=== PATIENT | male | born 1995 | race African-American/Black ===

== ENCOUNTER 2016-12-24 11:59 | Emergency (ER) | payer OTHER ==
[~2016-12-24] VITALS: Ht 188 cm; Wt 79.4 kg
[2016-12-24 11:59] VITALS: BP 135/61
[2016-12-24] MEDS ORDERED: GI COCKTAIL 50ML BTL(HYOSCYAMINE/MAALOX/LIDOCAINE VISCOUS)(1:3:1) PO ONE (12:30)
[2016-12-24] MEDS ORDERED: PRIL20CA9 PO (12:37)
== END 2016-12-24 12:45 | disposition home or self-care (01) ==
LOC: M ED 12:42
DX: K21.9 Gastro-esophageal reflux disease without esophagitis (principal); R10.13 Epigastric pain

== ENCOUNTER → 2017-02-09 | Outpatient (REF) | payer OTHER ==
[~2017-02-09] MED LIST: PRIL20CA9 PO
== END ==
LOC: M SFHCLERA 16:21
PROVIDERS: ATTEND Nurse Practitioner Family
DX: R30.0 Dysuria (principal)
CPT/HCPCS: 87086; 87491; 87591; 96372; G0463; J0696; Q0144

== ENCOUNTER 2017-02-10 20:24 | Emergency (ER) | payer OTHER ==
[~2017-02-10] VITALS: Ht 190.5 cm; Wt 81.6 kg
[2017-02-10] MEDS ORDERED: cefTRIAXone SOD 1 GM VIAL (J0696) IM ONE (22:15)
[2017-02-10] MEDS ORDERED: AZITHROMYCIN 250 MG TAB PO ONE (22:15)
[2017-02-10 22:34] VITALS: BP 133/78
== END 2017-02-10 22:40 | disposition home or self-care (01) ==
LOC: M ED 22:08
DX: A56.8 Sexually transmitted chlamydial infection of other sites (principal); A56.01 Chlamydial cystitis and urethritis
CPT/HCPCS: 81001; 87086; 87491; 87591; 96372; 99282; J0696

== ENCOUNTER → 2017-02-27 | Day surgery (SDC) | payer OTHER ==
[~2017-02-27] VITALS: Ht 188 cm; Wt 79.4 kg
[~2017-02-27] MED LIST changes: +BACITRACIN OINT 30GM As Ordered ONE; +KETOROLAC 60 MG/2 ML VIAL (J1885) As Ordered ONE; +LIDOCAINE 2% INJ 100 MG/5 ML SDV (FOR ANES.) As Ordered ONE; +LR 1,000 ML IV ONE; +LR 1,000 ML IV SCH; +METOCLOPRAMIDE INJ 10MG/2ML VIAL (J2765) IV PRN; +MIDAZOLAM INJ 2 MG/2 ML VIAL (J2250) As Ordered ONE; +MORPHINE 10 MG/ML 1ML VIAL As Ordered ONE; +ONDANSETRON 4MG/2ML VIAL (J2405) As Ordered ONE; +ONDANSETRON 4MG/2ML VIAL (J2405) IV PRN; +PERCOCET 5MG/325MG TAB PO PRN; +PROPOFOL 200 MG/20 ML VIAL As Ordered ONE; +dexameTHASONE 4 MG/ML 1ML VIAL (J1100) As Ordered ONE; +fentaNYL 100 MCG/2 ML INJECTION (J3010) As Ordered ONE; +fentaNYL 100 MCG/2 ML INJECTION (J3010) IV PRN
[2017-02-27] MEDS: MORPHINE 2 MG/ML 1ML SYRINGE IV PRN ×3 (09:15→09:30)
--- NOTE | 2017-02-27 09:47 | RO ---
DATE OF PROCEDURE: 02/27/2017 PREPROCEDURE DIAGNOSIS: Phimosis. POSTPROCEDURE DIAGNOSIS: Phimosis. PROCEDURE: Circumcision. SURGEON: Philip Booth MD CELLOPHANE PRESS OPERATOR: None ANESTHESIA: General. 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 He is brought to the operating room today for the above-listed procedure. DESCRIPTION OF PROCEDURE: The patient was brought to the operating room, and general anesthesia was induced. Prophylactic antibiotics were infused. He was then placed in supine position and prepped and draped in the usual sterile fashion. At this point, a [address] through the glans penis. Circumcising incisions were then made circumferential around the foreskin just proximal to the level of the coronal sulcus, and then also, around the skin of the penis after retracting the foreskin just proximal to the coronal sulcus. These incisions were then connected using Bovie electrocautery, and all the foreskin between the two incisions was carefully removed using the Bovie electrocautery. The skin was then reapproximated to the glans using interrupted 3-0 chromic sutures circumferentially. This was done after checking hemostasis, and hemostasis did appear excellent. Once this was done, dressings were applied, starting first with bacitracin ointment and then a Mc dressing and then a Coban dressing on top of that. At this point, the retracting suture was removed, and pressure was applied to the glans until there was no bleeding. This marked the conclusion of the procedure. The patient was then awakened from anesthesia and transported to the recovery room in stable condition. ESTIMATED BLOOD LOSS: 10 mL. COMPLICATIONS: None. SPECIMENS: Foreskin. PLAN: The patient will be followup in the clinic in a few weeks for a postoperative visit. FRANKIE
[2017-02-27 11:05] VITALS: BP 133/64
== END | disposition home or self-care (01) ==
LOC: M SDC 05:53
PROVIDERS: ATTEND Urology
DX: N47.1 Phimosis (principal)
CPT/HCPCS: 54161; 88302; J0690; J1100; J1885; J2250; J2405; J3010

== ENCOUNTER 2017-08-07 09:56 | Inpatient (IN) | payer OTHER ==
[~2017-08-07] VITALS: Ht 188 cm; Wt 80.0 kg
[~2017-08-07 09:56] MED LIST changes: -BACITRACIN OINT 30GM As Ordered ONE; -KETOROLAC 60 MG/2 ML VIAL (J1885) As Ordered ONE; -LIDOCAINE 2% INJ 100 MG/5 ML SDV (FOR ANES.) As Ordered ONE; -LR 1,000 ML IV ONE; -LR 1,000 ML IV SCH; -METOCLOPRAMIDE INJ 10MG/2ML VIAL (J2765) IV PRN; -MIDAZOLAM INJ 2 MG/2 ML VIAL (J2250) As Ordered ONE; -MORPHINE 10 MG/ML 1ML VIAL As Ordered ONE; -ONDANSETRON 4MG/2ML VIAL (J2405) As Ordered ONE; -ONDANSETRON 4MG/2ML VIAL (J2405) IV PRN; -PERCOCET 5MG/325MG TAB PO PRN; -PROPOFOL 200 MG/20 ML VIAL As Ordered ONE; -dexameTHASONE 4 MG/ML 1ML VIAL (J1100) As Ordered ONE; -fentaNYL 100 MCG/2 ML INJECTION (J3010) As Ordered ONE; -fentaNYL 100 MCG/2 ML INJECTION (J3010) IV PRN
[2017-08-07 10:49] LABS: MEAN CORPUSCULAR HEMOGLOBIN 30.2 pg (27.0-33.0); MEAN CORPUSCULAR HGB CONC 33.3 g/dl (32.0-36.5); MEAN CORPUSCULAR VOLUME 90.9 fl (80.0-96.0); PLATELET COUNT, AUTOMATED 228 10^3/uL (150-450); RED CELL DISTRIBUTION WIDTH 11.9 % (11.5-14.5); WHITE BLOOD COUNT 4.9 10^3/uL (4.0-10.0)
[2017-08-07 11:23] LABS: METHADONE URINE NEGATIVE (NEGATIVE)
[2017-08-07 11:31] LABS: ALBUMIN 4.6 GM/DL (3.2-5.2); ALBUMIN/GLOBULIN RATIO 1.31 (1.00-1.93); ALKALINE PHOSPHATASE 82 U/L (45-117); ALT/SGPT 30 U/L (12-78); ANION GAP 8 MEQ/L (8-16); AST/SGOT 25 U/L (7-37); BILIRUBIN,DIRECT 0.3 MG/DL (0.0-0.2); BILIRUBIN,TOTAL 0.9 MG/DL (0.2-1.0); BLOOD UREA NITROGEN 10 MG/DL (7-18); CALCIUM LEVEL 9.5 MG/DL (8.5-10.1); CARBON DIOXIDE LEVEL 28 MEQ/L (21-32); CHLORIDE LEVEL 103 MEQ/L (98-107); CREATININE FOR GFR 0.98 MG/DL (0.70-1.30); GLOMERULAR FILTRATION RATE > 60.0 (>60); GLUCOSE, FASTING 95 MG/DL (70-105); POTASSIUM SERUM 3.7 MEQ/L (3.5-5.1); SODIUM LEVEL 139 MEQ/L (136-145); TOTAL PROTEIN 8.1 GM/DL (6.4-8.2)
[2017-08-07] MEDS ORDERED: ACETAMINOPHEN TAB 650MG DOSE (2X325MG) PO PRN (16:00)
[2017-08-07] MEDS ORDERED: MOM 30ML SUSPENSION UDC PO PRN (16:00)
[2017-08-07] MEDS ORDERED: MAALOX 30 ML SUSP *UDC PO PRN (16:00)
[2017-08-07] MEDS ORDERED: traZODone 50 MG TAB PO PRN (16:00)
[2017-08-07 18:16] VITALS: BP 144/76
[2017-08-08 06:42] VITALS: BP 130/60
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
--- NOTE | 2017-08-08 14:33 | MHHPEPDOC ---
[facility] History & Physical History and Physical DATE OF ADMISSION: Aug 07, 2017 at 14:57 LEGAL STATUS AT ADMISSION: 9.39 CHIEF COMPLAINT: Patient says he came to the ED because he needed help, he needed to learn some coping skills to deal with stress. He said he felt overwhelmed HISTORY OF PRESENT ILLNESS: Patient is a 21-year-old male, who presented with SI without plan. Pt states, "my kicked me out in May 2017." Pt reports not knowing the reason why his kicked him out. Pt reports having a hard time coping stating today that "I am tired of holding everything in and I just want to end it". Pt states that he feels his is trying to get more custody of his daughter stating that he thinks it is for "money reasons". Pt states that work is not a stressor. Pt states that he is only stressed out because of the arguing between himself and his . Pt reports living "here and there with friends mostly with a [employer] wendi in [place]". Pt reports that he does not have a support system. Pt is from [place] but does not have a support system there either. Pt has poor appetite going from 3 meals a day to just 1 meal a day since May 2017. Pt reports only sleeping "4 or 5 hours a night". Pt drinks alcohol occasionally about every other weekend. Pt does not smoke or do drugs. Pt is not on any medications. Pt reports that he does not want to end his life right now because "he feels like there is hope".Documentation completed by MARC Knowles. PSYCHIATRIC REVIEW OF SYSTEMS: Affective: "I'm feeling pretty good now". After he said he flt good, he said he felt frustrated. He presents guarded. decreased sleep and appetite. Anxiety: High. sleep problems, decreased appetite Trauma: Denies Psychosis: Denies Personality: Needs further assessment PAST PSYCHIATRIC HISTORY: Prior Psychiatric Disorder: . Outpatient Treatment: . Suicidal/Self injurious: [Denies]. Psychotropic Medication History: . ALLERGIES: Please see below. FAMILY PSYCHIATRIC HISTORY: Denies SOCIAL HISTORY: Early Relations/development: Was born and was raised in [place], he says his childhood and adolescence were good Sibling order: Has on older sibling. Paternal relationships: Keeps in touch with his parents, but he doesn't feel supported by them. Education: HS diploma. Occupational: Active duty soldier. Legal: Denies Marital: , has an 8 month old baby girl Economic: Repots financial problems, but he says they are not causing him a lot of stress. Supports: [employer] Abuse/trauma: Denies SUBSTANCE ABUSE HISTORY: Denies PAST MEDICAL/SURGICAL HISTORY: [None]. VITAL SIGNS: Please see below. MENTAL STATUS EXAMINATION: General appearance: Patient is a 21-year old male, who is alert, guarded, dressed in hospital clothes, cooperative. Speech: Sparse, not fluent, not spontaneous, normal in tone, rate and volume Thought processes: Intact Thought content: Trust issues about his . He said she was unfaithful and he has thought he could pardon her, but then, he gave it a second thought and he said "no, because I can't trust her". Abstract reasoning and computation: Not assessed at this time Description of associations: Good Description of abnormal or psychotic thoughts: Denies current SI/HI, A/V hallucinations, denies thought delusions Judgment: Limited Insight: Limited Orientation: Oriented x 3 Recent and remote memory: Intact Attention span and concentration: good Fund of knowledge: Adequate Mood: "I feel good now." Affect: Constricted. anxious affect DIAGNOSES: 1. R/O Adjustment Disorder with depressed mood 2. R/O MDD, severe, single episode without psychotic symptoms ASSESSMENT: Patient is very guarded, he remained with his arms crossed on his chest for most of the interview. He is going through a tough situation at this time, he recently discovered his was cheating on him and he told her recently that he wanted to end his life to get a reaction out of her and he said he got the reaction he was expecting, she cried and begged him not to kill himself. However, he saus he won't forgive her because he can't trust her. 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 PROBLEM LIST: 1. Depression 2. Anxiety. 3. Risk for suicide 4. Ineffective coping INITIAL TREATMENT PLAN: 1. Patient was admitted on a 9.39 2. Complete history was obtained. 3. With patients permission, family will be contacted and database will be expanded. 4. Patients medication regimen will be reviewed and changed accordingly. 5. Patient will be provided with protected environment. 6. Patient will be treated with individual, group, and milieu therapies. 7. Patient will receive supportive psych-education. 8. Discharge planning will commence immediately. 9. Outpatient follow-up treatment will be strongly recommended. 10. The initial treatment plan will focus initially on: * Depression. * Risk for suicide. ESTIMATED LENGTH OF STAY: 5-7 DAYS. TIME SPENT COUNSELING AND COORDINATING INITIAL CARE: 60 minutes. Vital Signs Vital Signs Date Time Temp Pulse Resp B/P (MAP) Pulse Ox O2 Delivery O2 Flow Rate FiO2 08/08/17 06:42 98.8 61 14 130/60 (83) Room Air 08/07/17 18:16 100 Medications No Active Prescriptions or Reported Meds Allergies Coded Allergies: No Known Allergies (Unverified , 02/27/17) AMAURY FREDERICK MD Aug 08, 2017 14:33
[2017-08-08 18:14] VITALS: BP 127/63
[2017-08-09 06:19] VITALS: BP_SYST 118; BP_SYST 121; BP_DIAS 66; BP_DIAS 70
[2017-08-09] MEDS ORDERED: TRAZO50TA PO (11:02)
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
--- NOTE | 2017-08-10 00:42 | ECGEPIP ---
Stationary ECG Study [facility] Test Date: 2017-08-08 Pat Name: TOYA ROGERS Department: Room: [place] [address] Gender: M Etl Consultant: HERNESTO : 1995 Requested By: Mami Fernandez Order Number: [id number] Reading MD: Mika Rea Measurements Intervals Raymond Rate: 61 P: 12 [place]: 185 QRS: 66 QRSD: 107 T: 41 QT: 380 QTc: 383 Interpretive Statements SINUS RHYTHM. ECTOPIC ATRIAL BEATS ALSO NOTED ST ELEVATION CONSISTENT WITH INJURY, PERICARDITIS, OR EARLY REPOLARIZATION NONSPECIFIC ST & T-WAVE ABNORMALITY No prior tracing in the system Electronically Signed On 08-10-2017 0:41:59 EST by Mika Rea
== END 2017-08-09 13:30 | disposition home or self-care (01) | DRG 881 ==
LOC: M ED 09:56 → M ED INP 14:57 → M PSY 18:08
PROVIDERS: ADMIT Psychiatry & Neurology Psychiatry; ATTEND Psychiatry & Neurology Psychiatry
DX: F43.21 Adjustment disorder with depressed mood (principal); M54.5 Low back pain

== ENCOUNTER → 2017-09-09 | Outpatient (REF) | payer OTHER ==
[~2017-09-09] MED LIST changes: +MOBI4TAB PO; +TRAZO50TA PO
== END ==
LOC: M SFHCLERA 14:46
PROVIDERS: ATTEND Nurse Practitioner Family
DX: Z72.51 High risk heterosexual behavior (principal)

== ENCOUNTER 2017-09-14 08:43 | Emergency (ER) | payer OTHER ==
[~2017-09-14] VITALS: Ht 190.5 cm; Wt 81.8 kg
[~2017-09-14 08:43] MED LIST changes: -MOBI4TAB PO
[2017-09-14 08:44] VITALS: BP 122/62
[2017-09-14] MEDS ORDERED: MOBI4TAB PO (09:41)
== END 2017-09-14 09:47 | disposition home or self-care (01) ==
LOC: M ED 08:43
DX: M76.61 Achilles tendinitis, right leg (principal)

== ENCOUNTER 2017-11-01 06:19 | Inpatient (IN) | payer OTHER ==
[2017-11-01] MEDS: LR 1,000 ML IV ×4 (06:39→20:41)
[2017-11-01] MEDS ORDERED: LIDOCAINE 1% MDV 20ML VIAL SQ (06:45)
[2017-11-01] MEDS ORDERED: MIDAZOLAM INJ 2 MG/2 ML VIAL (J2250) As Ordered (07:30)
[2017-11-01] MEDS ORDERED: fentaNYL 250 MCG/5 ML INJECTION (J3010) As Ordered (07:30)
[2017-11-01] MEDS: dexameTHASONE 4 MG/ML 1ML VIAL (J1100) IV ×2 (07:34→15:43)
[2017-11-01] MEDS ORDERED: ONDANSETRON 4MG/2ML VIAL (J2405) As Ordered ×2 (08:13→11:14)
[2017-11-01] MEDS ORDERED: ROCURONIUM BROMIDE 50 MG/5 ML VIAL As Ordered (08:13)
[2017-11-01] MEDS ORDERED: LIDOCAINE 2% INJ 100 MG/5 ML SDV (FOR ANES.) As Ordered (08:13)
[2017-11-01] MEDS ORDERED: PROPOFOL 200 MG/20 ML VIAL As Ordered (08:13)
[2017-11-01] MEDS ORDERED: GLYCOPYRROLATE INJ 0.2 MG/ML 2 ML VIAL As Ordered (08:16)
[2017-11-01] MEDS ORDERED: HYDROmorphone HCL 2 MG/ML 1ML VIAL (J1170) As Ordered (08:16)
[2017-11-01] MEDS ORDERED: NEOSTIGMINE 10 MG/10 ML VIAL (J2710) As Ordered (08:16)
[2017-11-01] MEDS ORDERED: PHENYLephrine HCL 500 MCG/5 ML (100MCG/ML) SYRINGE (J2370) As Ordered (08:20)
[2017-11-01] MEDS: CHLORHEXIDINE GLUCONATE 0.12 % 15ML UDC (PERIDEX ORAL RINSE) As Ordered ×3 (08:27→08:28)
[2017-11-01] MEDS: OXYMETAZOLINE NASAL SPRAY (AFRIN) As Ordered ×2 (08:27→08:28)
[2017-11-01] MEDS: BACITRACIN OINT 30GM As Ordered (08:27)
[2017-11-01] MEDS: LIDOCAINE 2% W/ EPINEPHRINE 1.7 ML DENTAL INJ As Ordered (08:29)
[2017-11-01] MEDS ORDERED: REMIFENTANIL 1MG 3ML VIAL As Ordered ×2 (08:37)
[2017-11-01] MEDS ORDERED: LABETALOL HCL 100 MG/20 ML VIAL As Ordered (08:39)
[2017-11-01] MEDS ORDERED: OXYMETAZOLINE NASAL SPRAY (AFRIN) As Ordered (08:44)
[2017-11-01] MEDS ORDERED: METOCLOPRAMIDE INJ 10MG/2ML VIAL (J2765) As Ordered (10:54)
[2017-11-01] MEDS ORDERED: MEPERIDINE 50 MG/ML 1ML VIAL (J2175) As Ordered (11:37)
[2017-11-01] MEDS ORDERED: KETOROLAC 60 MG/2 ML VIAL (J1885) As Ordered (11:52)
[2017-11-01] MEDS ORDERED: PERCOCET 5MG/325MG TAB PO (12:15)
[2017-11-01] MEDS ORDERED: fentaNYL 100 MCG/2 ML INJECTION (J3010) IV (12:15)
[2017-11-01] MEDS ORDERED: MEPERIDINE INJ 25 MG/ML VIAL (J2175) IV (12:15)
[2017-11-01] MEDS: MORPHINE 2 MG/ML 1ML SYRINGE (J2270) IV ×2 (13:37→15:51)
[2017-11-01] MEDS: AMPICILLIN SOD/SULBACTAM SOD 3 GM in D5W MINI-BAG PLUS 100 ML IV ×2 (13:53→20:41)
[2017-11-01] MEDS: PSEUDOEPHEDRINE 30 MG TAB PO ×2 (14:00→22:48)
[2017-11-01] MEDS ORDERED: dexameTHASONE 20 MG/5 ML VIAL (J1100) IV (16:00)
[2017-11-01] MEDS: ONDANSETRON 4MG/2ML VIAL (J2405) IV ×2 (17:19→22:50)
[2017-11-01] MEDS: KETOROLAC 30 MG/ML VIAL (J1885) IV (20:41)
[2017-11-02] MEDS: dexameTHASONE 4 MG/ML 1ML VIAL (J1100) IV (00:06)
[2017-11-02] MEDS: PERCOCET 5MG/325MG TAB PO (01:33)
[2017-11-02] MEDS: AMPICILLIN SOD/SULBACTAM SOD 3 GM in D5W MINI-BAG PLUS 100 ML IV (05:03)
[2017-11-02] MEDS: KETOROLAC 30 MG/ML VIAL (J1885) IV (05:04)
[2017-11-02] MEDS: ONDANSETRON 4MG/2ML VIAL (J2405) IV (05:04)
[2017-11-02] MEDS: PSEUDOEPHEDRINE 30 MG TAB PO (05:05)
[2017-11-02] MEDS: LR 1,000 ML IV (05:05)
[2017-11-02] MEDS ORDERED: AUGMENTIN 875 MG TAB PO (09:00)
[2017-11-02] MEDS ORDERED: PSEUDOEPHEDRINE 30 MG TAB PO (09:15)
[2017-11-02] MEDS ORDERED: IBUPROFEN 100 MG/5 ML SUSP UDC DYE FREE PO (09:15)
[2017-11-02] MEDS: CHLORHEXIDINE ORAL RINSE 0.12%/15ML 120ML BOTTLE MT ×2 (11:07→20:09)
[2017-11-02] MEDS: AUGMENTIN BID 400MG/5ML SUSP 50ML BTL PO ×2 (11:08→20:09)
[2017-11-02] MEDS: HYDROcodone/APAP LIQUID 7.5-325MG 15ML UDC (LORTAB ELIXIR) PO ×2 (11:08→18:22)
[2017-11-02] MEDS: OXYMETAZOLINE NASAL SPRAY (AFRIN) ×2 (11:08→20:08)
[2017-11-03] MEDS: HYDROcodone/APAP LIQUID 7.5-325MG 15ML UDC (LORTAB ELIXIR) PO ×2 (03:54→10:34)
[2017-11-03] MEDS: AUGMENTIN BID 400MG/5ML SUSP 50ML BTL PO (08:58)
[2017-11-03] MEDS: OXYMETAZOLINE NASAL SPRAY (AFRIN) (08:59)
[2017-11-03] MEDS: CHLORHEXIDINE ORAL RINSE 0.12%/15ML 120ML BOTTLE MT (08:59)
== END 2017-11-03 11:58 | disposition home or self-care (01) | DRG 132 ==
LOC: M OR 06:19 → M MSPAV 13:07
PROC: 0NSR04Z Reposition Maxilla with Internal Fixation Device, Open Approach (ICD-10-PCS; principal; 2017-11-01 07:30)
DX: M26.02 Maxillary hypoplasia (principal)

== ENCOUNTER 2018-02-15 10:30 | Emergency (ER) | payer OTHER ==
[2018-02-15] MEDS ORDERED: LIDOCAINE 1% MDV 20ML VIAL As Ordered (10:58)
[2018-02-15 11:00] LABS: KETONE, URINE AUTO RFX NEGATIVE (NEGATIVE); LEUKOCYTE ESTERASE UR AUTO RFX NEGATIVE (NEGATIVE); NITRITE, URINE AUTO RFX NEGATIVE (NEGATIVE); RBC, URINE AUTO RFX 2 /HPF (0-3); SPECIFIC GRAVITY UR AUTO RFX 1.008 (1.002-1.035); SQUAM EPITHELIAL CELL UR AURFX 0 /HPF (0-6); WBC, URINE AUTO RFX 1 /HPF (0-3)
[2018-02-15] MEDS: cefTRIAXone SOD 250 MG VIAL (J0696) IM (11:10)
[2018-02-15] MEDS: AZITHROMYCIN 250 MG TAB PO (11:10)
[2018-02-15 13:06] LABS: CHLAMYDIA DNA AMPLIFICATION NEGATIVE (NEGATIVE); GC DNA AMPLIFICATION NEGATIVE (NEGATIVE)
== END 2018-02-15 11:32 | disposition home or self-care (01) ==
LOC: M ED 10:30
DX: R30.0 Dysuria (principal)
CPT/HCPCS: J0696